=== PATIENT | male | born 1950 | race Two or more races ===

== ENCOUNTER 2023-04-08 15:14 | Outpatient (CLI) | payer OTHER ==
[~2023-04-08 15:14] MED LIST: IBUPROFEN800 MG PO; PEPCID20 MG PO; ULTRAM50 MG PO
== END 2023-04-08 15:20 | disposition home or self-care (01) ==
LOC: RAD 15:14
PROVIDERS: ATTEND Family Medicine
DX: J20.9 Acute bronchitis, unspecified (principal)

== ENCOUNTER 2023-04-16 08:14 | Outpatient (CLI) | payer OTHER | END 2023-04-16 08:31 | disposition home or self-care (01) | LOC: TOM 08:14 | DX: J32.0 Chronic maxillary sinusitis (principal) ==